=== PATIENT | male | born 1940 | race African-American/Black ===

== ENCOUNTER 2018-03-15 16:02 | Inpatient (IN) | payer MEDICARE, MEDICAID ==
[~2018-03-15] VITALS: Ht 175.3 cm; Wt 74.4 kg
[~2018-03-15 16:02] MED LIST: ABIR500T PO; ALLO100T PO; ENAL5TAB PO; GABA-529 PO; METF-416 PO; PRED5TAB48 PO; TAMS0.4C31 PO
[2018-03-15] MEDS ORDERED: SODIUM CHLORIDE 0.9% 1,000 ML IV ONE (18:27)
[2018-03-15 19:34] LABS: HEMATOCRIT. 32.1 % (42.0-52.0); HEMOGLOBIN. 10.2 g/dL (14.0-18.0); MEAN CORPUSCULAR HEMOGLOBIN 28.9 pg (28.0-32.0); MEAN CORPUSCULAR VOLUME 90.9 fL (80.0-94.0); MEAN PLATELET VOLUME 7.8 fl (7.4-10.4); PLATELET 74 x1000/uL (130-400); RED BLOOD CELL COUNT 3.54 mill/uL (4.7-6.1)
[2018-03-15 19:39] LABS: INR 1.2; PROTHROMBIN TIME 11.7 sec (9.1-11.1)
[2018-03-15 19:41] LABS: CHLORIDE 102 mEq/L (98-107)
[2018-03-15 20:47] LABS: ATYPICAL LYMPHOCYTES 2; NUCLEATED RED BLOOD CELLS 20 /100 WBC; PLATELET ESTIMATE DECREASED
[2018-03-16] MEDS ORDERED: ONDANSETRON HCL 4MG/2ML INJ IV PRN
[2018-03-16] MEDS ORDERED: CLONIDINE 0.1MG TABLET PO PRN
[2018-03-16] MEDS ORDERED: DEXTROSE 50% WATER 50ML SYRINGE IV PRN
[2018-03-16] MEDS ORDERED: IPRATROPIUM/ALBUTEROL 0.5-3(2.5)MG/3ML NEB INH PRN
[2018-03-16] MEDS ORDERED: MAGNESIUM/ALUMINUM HYDROXIDE/SIMETHICONE 30ML UDC PO PRN
[2018-03-16 01:53] LABS: CLARITY URINE TURBID (CLEAR); COLOR URINE YELLOW (YELLOW); KETONES URINE NEGATIVE (NEGATIVE); LEUKOCYTE ESTERASE URINE NEGATIVE (NEGATIVE); NITRITE URINE NEGATIVE (NEGATIVE); OCCULT BLOOD URINE NEGATIVE (NEGATIVE); PH URINE 5.5 (4.5-8.0); PROTEIN URINE 1+ (NEGATIVE); SPECIFIC GRAVITY URINE 1.011 (1.005-1.030); UROBILINOGEN URINE 0.2 E.U./dL (0.2-1.0)
[2018-03-16] MEDS: HYDROCODONE/APAP 7.5/325MG 1 TAB TABLET PO PRN ×2 (03:27→20:58)
[2018-03-16] MEDS ORDERED: MVI, ADULT NO.1 10 ML, FOLIC ACID 1 MG, THIAMINE HCL 100 MG in SODIUM CHLORIDE 0.9% 1,0... IV SCH ×4 (04:00)
[2018-03-16] MEDS: BLOOD SUGAR DIAGNOSTIC STRIP TEST SCH ×4 (07:20→21:07)
[2018-03-16 07:40] VITALS: BP 105/50
[2018-03-16] MEDS: INSULIN LISPRO 100 UNITS/ML SUBCUT SCH ×4 (07:50→21:00)
[2018-03-16 08:00] VITALS: BP 99/61
[2018-03-16] MEDS: TAMSULOSIN HCL 0.4MG SR CAPSULE PO SCH (09:00)
[2018-03-16] MEDS: ALLOPURINOL 100 MG TABLET PO SCH (09:00)
[2018-03-16] MEDS: PREDNISONE 10MG TABLET PO SCH (10:33)
[2018-03-16 12:00] VITALS: BP 96/62
[2018-03-16 16:00] VITALS: BP 98/63
[2018-03-16 20:00] VITALS: BP 93/63
[2018-03-17] VITALS: BP 100/55
[2018-03-17 04:00] VITALS: BP 103/70
[2018-03-17] MEDS: HYDROCODONE/APAP 7.5/325MG 1 TAB TABLET PO PRN (05:26)
[2018-03-17] MEDS: BLOOD SUGAR DIAGNOSTIC STRIP TEST SCH ×4 (06:20→21:57)
[2018-03-17] MEDS: INSULIN LISPRO 100 UNITS/ML SUBCUT SCH ×4 (07:50→21:00)
[2018-03-17 08:00] VITALS: BP 80/48
[2018-03-17] MEDS: TAMSULOSIN HCL 0.4MG SR CAPSULE PO SCH ×2 (09:00→09:42)
[2018-03-17] MEDS: ACETAMINOPHEN 325MG TABLET PO PRN ×2 (09:41→21:00)
[2018-03-17] MEDS: PREDNISONE 10MG TABLET PO SCH (09:42)
[2018-03-17] MEDS: ALLOPURINOL 100 MG TABLET PO SCH (09:42)
[2018-03-17 12:00] VITALS: BP 95/67
[2018-03-17] MEDS ORDERED: HYDROCODONE/ACETAMINOPHEN 10/325MG TABLET PO PRN (12:30)
[2018-03-17] MEDS: HYDROCODONE/ACETAMINOPHEN 10/325MG TABLET PO PRN ×3 (13:44→22:08)
[2018-03-17] MEDS ORDERED: LACTULOSE 20G/30ML UDC PO PRN (13:45)
[2018-03-17] MEDS ORDERED: BISACODYL 10MG SUPP PR PRN (13:45)
[2018-03-17] MEDS ORDERED: MAGNESIUM HYDROXIDE 400MG/5ML 30ML UDC PO PRN (13:45)
[2018-03-17 16:00] VITALS: BP 97/71
[2018-03-17] MEDS: DOCUSATE SODIUM 100MG CAPSULE PO SCH (17:41)
[2018-03-17 20:00] VITALS: BP 99/68
[2018-03-18] VITALS: BP 109/55
[2018-03-18 04:00] VITALS: BP 110/56
[2018-03-18] MEDS: HYDROCODONE/ACETAMINOPHEN 10/325MG TABLET PO PRN ×2 (04:06→09:19)
[2018-03-18] MEDS: BLOOD SUGAR DIAGNOSTIC STRIP TEST SCH (06:45)
[2018-03-18] MEDS: INSULIN LISPRO 100 UNITS/ML SUBCUT SCH (06:45)
[2018-03-18 08:00] VITALS: BP 97/65
[2018-03-18] MEDS: TAMSULOSIN HCL 0.4MG SR CAPSULE PO SCH (09:00)
[2018-03-18] MEDS: ALLOPURINOL 100 MG TABLET PO SCH (09:17)
[2018-03-18] MEDS: MULTIVITAMINS,THER W-MINERALS TABLET PO SCH (09:17)
[2018-03-18] MEDS: DOCUSATE SODIUM 100MG CAPSULE PO SCH ×2 (09:17→16:47)
[2018-03-18] MEDS: PREDNISONE 10MG TABLET PO SCH (09:18)
[2018-03-18 12:00] VITALS: BP 90/56
[2018-03-18 16:00] VITALS: BP 91/60
[2018-03-18] MEDS: MORPHINE SULFATE 10MG/5ML ORAL SOLN UDC PO PRN ×2 (16:00→22:26)
[2018-03-18] MEDS: MEGESTROL ACETATE 400 MG/10 ML UDC PO SCH (16:46)
[2018-03-18] MEDS: LACTULOSE 20G/30ML UDC PO SCH (16:47)
[2018-03-18 20:00] VITALS: BP 96/69
[2018-03-18] MEDS: MORPHINE SULFATE 15MG TABLET SR PO SCH (21:00)
[2018-03-19] VITALS (7 sets, daily range): BP systolic 78–113; BP diastolic 52–73
[2018-03-19] MEDS: ACETAMINOPHEN 325MG TABLET PO PRN ×3 (00:23→15:03)
[2018-03-19] MEDS: MORPHINE SULFATE 10MG/5ML ORAL SOLN UDC PO PRN ×3 (02:07→16:50)
[2018-03-19 06:57] LABS: HEMATOCRIT. 27.9 % (42.0-52.0); HEMOGLOBIN. 8.9 g/dL (14.0-18.0); MEAN CORPUSCULAR HEMOGLOBIN 28.4 pg (28.0-32.0); MEAN CORPUSCULAR VOLUME 89.4 fL (80.0-94.0); MEAN PLATELET VOLUME 8.8 fl (7.4-10.4); RED BLOOD CELL COUNT 3.13 mill/uL (4.7-6.1); RED CELL DISTRIBUTION WIDTH 17.8 % (11.6-14.6)
[2018-03-19 07:05] LABS: PLATELET 50 x1000/uL (130-400)
[2018-03-19 07:44] LABS: CHLORIDE 101 mEq/L (98-107)
[2018-03-19 07:58] LABS: PHOSPHORUS 1.1 mg/dL (2.5-4.9)
[2018-03-19 08:25] LABS: ATYPICAL LYMPHOCYTES 2; NUCLEATED RED BLOOD CELLS 53 /100 WBC
[2018-03-19 08:27] LABS: PLATELET ESTIMATE DECREASED
[2018-03-19] MEDS: ALLOPURINOL 100 MG TABLET PO SCH (09:00)
[2018-03-19] MEDS: DEXT 5%/0.9% NACL 1,000 ML IV SCH ×2 (09:41→19:00)
[2018-03-19] MEDS: DOCUSATE SODIUM 100MG CAPSULE PO SCH ×2 (09:43→16:49)
[2018-03-19] MEDS: MULTIVITAMINS,THER W-MINERALS TABLET PO SCH (09:43)
[2018-03-19] MEDS: TAMSULOSIN HCL 0.4MG SR CAPSULE PO SCH (09:43)
[2018-03-19] MEDS: LACTULOSE 20G/30ML UDC PO SCH ×2 (09:44→16:49)
[2018-03-19] MEDS: MEGESTROL ACETATE 400 MG/10 ML UDC PO SCH ×2 (09:44→16:49)
[2018-03-19] MEDS: PREDNISONE 10MG TABLET PO SCH (09:45)
[2018-03-19] MEDS: MORPHINE SULFATE 15MG TABLET SR PO SCH ×2 (09:45→20:05)
[2018-03-19] MEDS ORDERED: MAGNESIUM 2 G PREMIX 50 ML IV NR (10:30)
[2018-03-19] MEDS ORDERED: POTASSIUM PHOS,M-BASIC-D-BASIC 20 MMOL in DEXT 5% WATER 243.3333 ML IV ONE (11:00)
[2018-03-19] MEDS ORDERED: SODIUM CHLORIDE 0.9% 250 ML IV ONE (16:15)
[2018-03-20] MEDS: MORPHINE SULFATE 10MG/5ML ORAL SOLN UDC PO PRN ×2 (01:15→06:08)
[2018-03-20 04:00] VITALS: BP 120/80
[2018-03-20 07:59] LABS: HEMATOCRIT. 30.3 % (42.0-52.0); HEMOGLOBIN. 9.4 g/dL (14.0-18.0); MEAN CORPUSCULAR HEMOGLOBIN 27.8 pg (28.0-32.0); MEAN CORPUSCULAR VOLUME 89.6 fL (80.0-94.0); MEAN PLATELET VOLUME 7.9 fl (7.4-10.4); RED BLOOD CELL COUNT 3.38 mill/uL (4.7-6.1); RED CELL DISTRIBUTION WIDTH 18.3 % (11.6-14.6)
[2018-03-20 08:00] VITALS: BP 106/72
[2018-03-20 08:19] LABS: PLATELET 39 x1000/uL (130-400)
[2018-03-20 08:59] LABS: PHOSPHORUS 3.3 mg/dL (2.5-4.9)
[2018-03-20] MEDS: ALLOPURINOL 100 MG TABLET PO SCH (09:00)
[2018-03-20] MEDS: LACTULOSE 20G/30ML UDC PO SCH ×2 (09:00→17:00)
[2018-03-20] MEDS: DOCUSATE SODIUM 100MG CAPSULE PO SCH ×2 (09:00→17:00)
[2018-03-20] MEDS: PREDNISONE 10MG TABLET PO SCH (09:34)
[2018-03-20] MEDS: MULTIVITAMINS,THER W-MINERALS TABLET PO SCH (09:34)
[2018-03-20] MEDS: TAMSULOSIN HCL 0.4MG SR CAPSULE PO SCH (09:35)
[2018-03-20] MEDS: MEGESTROL ACETATE 400 MG/10 ML UDC PO SCH ×2 (09:36→17:16)
[2018-03-20] MEDS: MORPHINE SULFATE 15MG TABLET SR PO SCH ×2 (09:36→20:51)
[2018-03-20 12:00] VITALS: BP 80/74
[2018-03-20 13:05] LABS: NUCLEATED RED BLOOD CELLS 85 /100 WBC
[2018-03-20 13:07] LABS: PLATELET ESTIMATE MARKEDLY DECREASED
[2018-03-20] MEDS: DEXT 5%/0.9% NACL 1,000 ML IV SCH (15:00)
[2018-03-20 16:00] VITALS: BP 89/65
[2018-03-20 20:00] VITALS: BP 96/65
[2018-03-21] VITALS: BP 99/64
[2018-03-21] MEDS: DEXT 5%/0.9% NACL 1,000 ML IV SCH ×2 (03:23→13:50)
[2018-03-21] MEDS: MORPHINE SULFATE 10MG/5ML ORAL SOLN UDC PO PRN ×2 (03:38→16:46)
[2018-03-21 04:00] VITALS: BP 92/61
[2018-03-21 07:42] LABS: HEMATOCRIT. 26.9 % (42.0-52.0); HEMOGLOBIN. 8.3 g/dL (14.0-18.0); MEAN CORPUSCULAR HEMOGLOBIN 28.1 pg (28.0-32.0); MEAN CORPUSCULAR VOLUME 90.8 fL (80.0-94.0); RED BLOOD CELL COUNT 2.97 mill/uL (4.7-6.1); RED CELL DISTRIBUTION WIDTH 18.9 % (11.6-14.6)
[2018-03-21 07:54] LABS: PLATELET 43 x1000/uL (130-400)
[2018-03-21 08:00] VITALS: BP 97/60
[2018-03-21] MEDS: PREDNISONE 10MG TABLET PO SCH (08:24)
[2018-03-21] MEDS: LACTULOSE 20G/30ML UDC PO SCH ×3 (08:25→16:52)
[2018-03-21] MEDS: ALLOPURINOL 100 MG TABLET PO SCH (08:25)
[2018-03-21] MEDS: DOCUSATE SODIUM 100MG CAPSULE PO SCH ×3 (08:25→16:53)
[2018-03-21] MEDS: MULTIVITAMINS,THER W-MINERALS TABLET PO SCH (08:25)
[2018-03-21] MEDS: TAMSULOSIN HCL 0.4MG SR CAPSULE PO SCH (08:31)
[2018-03-21] MEDS: MEGESTROL ACETATE 400 MG/10 ML UDC PO SCH ×2 (08:31→16:45)
[2018-03-21] MEDS: MORPHINE SULFATE 15MG TABLET SR PO SCH ×2 (10:42→22:05)
[2018-03-21 12:00] VITALS: BP 95/67
[2018-03-21] MEDS ORDERED: SODIUM POLYSTYRENE SULFONATE 15 G/60 ML BOT PO NR (13:00)
[2018-03-21 13:39] LABS: NUCLEATED RED BLOOD CELLS 32 /100 WBC; PLATELET ESTIMATE MARKEDLY DECREASED
[2018-03-21 16:00] VITALS: BP 100/68
[2018-03-21 20:00] VITALS: BP 102/68
[2018-03-22] VITALS: BP 90/60
[2018-03-22] MEDS: DEXT 5%/0.9% NACL 1,000 ML IV SCH ×3 (00:32→17:01)
[2018-03-22 04:00] VITALS: BP 95/65
[2018-03-22] MEDS: MORPHINE SULFATE 10MG/5ML ORAL SOLN UDC PO PRN (06:38)
[2018-03-22 08:01] VITALS: BP 105/69
[2018-03-22] MEDS: MEGESTROL ACETATE 400 MG/10 ML UDC PO SCH ×2 (09:13→16:40)
[2018-03-22] MEDS: LACTULOSE 20G/30ML UDC PO SCH ×2 (09:13→16:37)
[2018-03-22] MEDS: TAMSULOSIN HCL 0.4MG SR CAPSULE PO SCH (09:14)
[2018-03-22] MEDS: DOCUSATE SODIUM 100MG CAPSULE PO SCH ×2 (09:14→16:37)
[2018-03-22] MEDS: PREDNISONE 10MG TABLET PO SCH (09:14)
[2018-03-22] MEDS: MULTIVITAMINS,THER W-MINERALS TABLET PO SCH (09:14)
[2018-03-22] MEDS: ALLOPURINOL 100 MG TABLET PO SCH (09:14)
[2018-03-22] MEDS: MORPHINE SULFATE 15MG TABLET SR PO SCH ×2 (09:15→22:13)
[2018-03-22 12:00] VITALS: BP 91/51
[2018-03-22 16:00] VITALS: BP 95/52
[2018-03-22 20:00] VITALS: BP 93/56
[2018-03-23] VITALS (7 sets, daily range): BP systolic 88–98; BP diastolic 52–60
[2018-03-23] MEDS: DEXT 5%/0.9% NACL 1,000 ML IV SCH ×3 (06:17→22:54)
[2018-03-23] MEDS: MORPHINE SULFATE 15MG TABLET SR PO SCH ×2 (09:00→20:36)
[2018-03-23] MEDS: TAMSULOSIN HCL 0.4MG SR CAPSULE PO SCH (09:00)
[2018-03-23] MEDS: MULTIVITAMINS,THER W-MINERALS TABLET PO SCH (09:07)
[2018-03-23] MEDS: DOCUSATE SODIUM 100MG CAPSULE PO SCH (09:07)
[2018-03-23] MEDS: ALLOPURINOL 100 MG TABLET PO SCH (09:07)
[2018-03-23] MEDS: PREDNISONE 10MG TABLET PO SCH (09:07)
[2018-03-23] MEDS: MEGESTROL ACETATE 400 MG/10 ML UDC PO SCH ×2 (09:08→16:49)
[2018-03-23] MEDS ORDERED: ALBUMIN HUMAN 25GM/100ML (25%) IV NR (10:00)
[2018-03-23] MEDS ORDERED: MORPHINE SULFATE 10MG/5ML ORAL SOLN UDC PO PRN (14:30)
[2018-03-24] VITALS: BP 107/66
[2018-03-24 04:00] VITALS: BP 99/59
[2018-03-24 08:05] VITALS: BP 81/44
[2018-03-24] MEDS: MEGESTROL ACETATE 400 MG/10 ML UDC PO SCH ×2 (09:19→17:52)
[2018-03-24] MEDS: DEXT 5%/0.9% NACL 1,000 ML IV SCH (09:19)
[2018-03-24] MEDS: PREDNISONE 10MG TABLET PO SCH (09:19)
[2018-03-24] MEDS: MULTIVITAMINS,THER W-MINERALS TABLET PO SCH (09:19)
[2018-03-24] MEDS: TAMSULOSIN HCL 0.4MG SR CAPSULE PO SCH (09:20)
[2018-03-24] MEDS: ALLOPURINOL 100 MG TABLET PO SCH (09:20)
[2018-03-24 12:12] VITALS: BP 85/54
[2018-03-24 16:31] VITALS: BP 89/59
[2018-03-25] VITALS: BP 105/70
[2018-03-25] MEDS: ACETAMINOPHEN 325MG TABLET PO PRN (01:37)
[2018-03-25 04:00] VITALS: BP 90/52
[2018-03-25] MEDS: DEXT 5%/0.9% NACL 1,000 ML IV SCH ×2 (05:00→19:03)
[2018-03-25 08:00] VITALS: BP 79/61
[2018-03-25] MEDS: TAMSULOSIN HCL 0.4MG SR CAPSULE PO SCH ×2 (09:05→09:07)
[2018-03-25] MEDS: MEGESTROL ACETATE 400 MG/10 ML UDC PO SCH ×2 (09:05→17:00)
[2018-03-25] MEDS: MULTIVITAMINS,THER W-MINERALS TABLET PO SCH (09:07)
[2018-03-25] MEDS: PREDNISONE 10MG TABLET PO SCH (09:07)
[2018-03-25] MEDS: ALLOPURINOL 100 MG TABLET PO SCH (09:07)
[2018-03-25 12:00] VITALS: BP 90/59
[2018-03-25] MEDS ORDERED: DIGOXIN 500MCG/2ML AMP IV NR ×2 (12:15→16:15)
[2018-03-25] MEDS: DIGOXIN 500MCG/2ML AMP IV NR (13:15)
[2018-03-25 13:39] LABS: HEMATOCRIT. 24.5 % (42.0-52.0); HEMOGLOBIN. 7.6 g/dL (14.0-18.0); MEAN CORPUSCULAR HEMOGLOBIN 27.5 pg (28.0-32.0); MEAN CORPUSCULAR VOLUME 88.8 fL (80.0-94.0); MEAN PLATELET VOLUME 7.1 fl (7.4-10.4); RED BLOOD CELL COUNT 2.76 mill/uL (4.7-6.1); RED CELL DISTRIBUTION WIDTH 18.8 % (11.6-14.6)
[2018-03-25 13:50] LABS: PHOSPHORUS 2.9 mg/dL (2.5-4.9)
[2018-03-25 14:53] LABS: NUCLEATED RED BLOOD CELLS 53 /100 WBC
[2018-03-25 14:54] LABS: PLATELET ESTIMATE MARKEDLY DECREASED
[2018-03-25 14:56] LABS: PLATELET 17 x1000/uL (130-400)
[2018-03-25 16:00] VITALS: BP 81/54
[2018-03-25] MEDS ORDERED: CALCIUM GLUCONATE 4,000 MG in DEXT 5% WATER 250 ML IV NR (18:30)
[2018-03-25 20:07] VITALS: BP 86/57
[2018-03-25] MEDS ORDERED: MAGNESIUM 1 G PREMIX 100 ML IV NR (21:00)
[2018-03-26 00:05] VITALS: BP 90/62
[2018-03-26] MEDS: DEXT 5%/0.9% NACL 1,000 ML IV SCH ×2 (01:00→11:50)
[2018-03-26 04:00] VITALS: BP 95/66
[2018-03-26 07:44] LABS: HEMATOCRIT. 27.2 % (42.0-52.0); HEMOGLOBIN. 8.4 g/dL (14.0-18.0); MEAN CORPUSCULAR HEMOGLOBIN 27.8 pg (28.0-32.0); MEAN CORPUSCULAR VOLUME 90.3 fL (80.0-94.0); MEAN PLATELET VOLUME 6.9 fl (7.4-10.4); RED BLOOD CELL COUNT 3.01 mill/uL (4.7-6.1)
[2018-03-26] MEDS: MEGESTROL ACETATE 400 MG/10 ML UDC PO SCH ×2 (08:24→17:00)
[2018-03-26] MEDS: MULTIVITAMINS,THER W-MINERALS TABLET PO SCH (08:32)
[2018-03-26] MEDS: ALLOPURINOL 100 MG TABLET PO SCH (08:32)
[2018-03-26] MEDS: PREDNISONE 10MG TABLET PO SCH (08:32)
[2018-03-26] MEDS: TAMSULOSIN HCL 0.4MG SR CAPSULE PO SCH (08:34)
[2018-03-26 10:10] LABS: NUCLEATED RED BLOOD CELLS 65 /100 WBC
[2018-03-26 10:11] LABS: PLATELET ESTIMATE MARKEDLY DECREASED
[2018-03-26 10:14] LABS: PLATELET 14 x1000/uL (130-400)
[2018-03-26 12:00] VITALS: BP 109/64
[2018-03-26 12:37] LABS: BG BASE EXCESS -6.1 mmol/L (-2.0-2.0); BG CARBOXYHEMOGLOBIN 0.6 % (0.5-1.5); BG DEOXYHEMOGLOBIN 3.8 % (0.0-5.0); BG FRACTION INSPIRED OXYGEN 21; BG HCO3 ACT 15.8 mmol/L (22.0-26.0); BG METHEMOGLOBIN 0.1 % (0.0-1.5); BG OXYGEN SATURATION 96.2 % (92.0-98.5); BG OXYHEMOGLOBIN 95.5 % (94.0-97.0); BG PH 7.493 (7.350-7.450); BG PO2 82.2 mmHg (75.0-100.0); BG SAMPLE SITE RIGHT BRACHIAL; BG TOTAL HEMOGLOBIN 9.7 g/dL (12.0-18.0); BG VENT MODE ROOM AIR
[2018-03-26] MEDS ORDERED: KCL 20MEQ/100ML PREMIX 100 ML IV SCH (13:00)
[2018-03-26] MEDS: DIGOXIN 500MCG/2ML AMP IV NR (14:51)
[2018-03-26] MEDS: HYDROCODONE/ACETAMINOPHEN 10/325MG TABLET PO PRN ×2 (15:12→23:13)
[2018-03-26] MEDS: ATENOLOL 50 MG TABLET PO SCH (15:27)
[2018-03-26 16:00] VITALS: BP 77/51
[2018-03-26] MEDS: MORPHINE SULFATE 15MG TABLET SR PO SCH (20:22)
[2018-03-26] MEDS ORDERED: ATENOLOL 50 MG TABLET PO SCH (21:00)
[2018-03-27 00:15] VITALS: BP 101/58
[2018-03-27 04:00] VITALS: BP 94/64
[2018-03-27] MEDS: HYDROCODONE/ACETAMINOPHEN 10/325MG TABLET PO PRN (06:39)
[2018-03-27] MEDS: DEXT 5%/0.9% NACL 1,000 ML IV SCH (07:14)
[2018-03-27 08:00] VITALS: BP 107/62
[2018-03-27] MEDS: ALLOPURINOL 100 MG TABLET PO SCH (09:11)
[2018-03-27] MEDS: PREDNISONE 10MG TABLET PO SCH (09:11)
[2018-03-27] MEDS: MEGESTROL ACETATE 400 MG/10 ML UDC PO SCH ×2 (09:11→18:01)
[2018-03-27] MEDS: MULTIVITAMINS,THER W-MINERALS TABLET PO SCH (09:11)
[2018-03-27] MEDS: TAMSULOSIN HCL 0.4MG SR CAPSULE PO SCH (09:12)
[2018-03-27] MEDS: ATENOLOL 50 MG TABLET PO SCH ×2 (09:22→21:00)
[2018-03-27 10:20] LABS: HEMATOCRIT. 28.8 % (42.0-52.0); HEMOGLOBIN. 8.6 g/dL (14.0-18.0); MEAN PLATELET VOLUME 4.6 fl (7.4-10.4); RED BLOOD CELL COUNT 3.17 mill/uL (4.7-6.1); RED CELL DISTRIBUTION WIDTH 19.2 % (11.6-14.6)
[2018-03-27 10:27] LABS: PLATELET 6 x1000/uL (130-400)
[2018-03-27 10:31] LABS: PHOSPHORUS 3.2 mg/dL (2.5-4.9)
[2018-03-27 11:42] LABS: ATYPICAL LYMPHOCYTES 1; NUCLEATED RED BLOOD CELLS 161 /100 WBC; PLATELET ESTIMATE MARKEDLY DECREASED
[2018-03-27 12:00] VITALS: BP 93/63
[2018-03-27] MEDS: MORPHINE SULFATE 15MG TABLET SR PO SCH ×2 (14:07→21:00)
[2018-03-27 16:00] VITALS: BP 92/57
[2018-03-27] MEDS ORDERED: FUROSEMIDE 40MG/4ML VIAL IVP NR (17:00)
[2018-03-27 20:00] VITALS: BP 92/54
[2018-03-28] VITALS: BP 89/53
[2018-03-28 04:00] VITALS: BP 95/58
[2018-03-28 08:00] VITALS: BP 85/46
[2018-03-28] MEDS: ATENOLOL 50 MG TABLET PO SCH (09:00)
[2018-03-28 12:00] VITALS: BP 81/51
[2018-03-28] MEDS: MEGESTROL ACETATE 400 MG/10 ML UDC PO SCH (12:00)
[2018-03-28] MEDS: TAMSULOSIN HCL 0.4MG SR CAPSULE PO SCH (12:01)
[2018-03-28] MEDS: MORPHINE SULFATE 15MG TABLET SR PO SCH (12:02)
[2018-03-28] MEDS: MULTIVITAMINS,THER W-MINERALS TABLET PO SCH (12:03)
[2018-03-28] MEDS: ALLOPURINOL 100 MG TABLET PO SCH (12:03)
[2018-03-28] MEDS: PREDNISONE 10MG TABLET PO SCH (12:03)
[2018-03-28] MEDS ORDERED: IOHEXOL-350 100 ML BOTTLE ONE (15:20)
[2018-03-28 16:00] VITALS: BP 88/41
[2018-03-28 18:20] VITALS: BP 88/41
== END 2018-03-28 19:25 | DRG 469 ==
LOC: ER 16:02 → 6EST 20:12 → EDBEDREQTM 20:20 → EDBEDREQ 20:20 → ENRESERV 03-16 00:37 → 6EST 03-16 07:10 → 7WST 03-20 23:25
PROVIDERS: ADMIT Internal Medicine; ATTEND Internal Medicine
DX: N17.0 Acute kidney failure with tubular necrosis (principal); E43 Unspecified severe protein-calorie malnutrition; L89.153 Pressure ulcer of sacral region, stage 3; D61.818 Other pancytopenia; C78.7 Secondary malignant neoplasm of liver and intrahepatic bile duct; E11.22 Type 2 diabetes mellitus with diabetic chronic kidney disease; E87.2 Acidosis; E83.39 Other disorders of phosphorus metabolism; E83.42 Hypomagnesemia; Z51.5 Encounter for palliative care; R62.7 Adult failure to thrive; I47.1 Supraventricular tachycardia; I48.0 Paroxysmal atrial fibrillation; C61 Malignant neoplasm of prostate; D64.9 Anemia, unspecified; E11.9 Type 2 diabetes mellitus without complications; E86.0 Dehydration; E86.1 Hypovolemia; E87.5 Hyperkalemia; I12.9 Hypertensive chronic kidney disease with stage 1 through stage 4 chronic kidney disease, or unspecified chronic kidney disease; M10.9 Gout, unspecified; M19.90 Unspecified osteoarthritis, unspecified site; N18.9 Chronic kidney disease, unspecified; N21.0 Calculus in bladder; N28.1 Cyst of kidney, acquired; R18.8 Other ascites; E83.51 Hypocalcemia; I95.9 Hypotension, unspecified; Z92.21 Personal history of antineoplastic chemotherapy; Z90.79 Acquired absence of other genital organ(s); Z79.899 Other long term (current) drug therapy
CPT/HCPCS: 36415; 36600; 71045; 76705; 76770; 80048; 82330; 82375; 82805; 82962; 83036; 83735; 84100; 84134; 84443; 84484; 86850; 86900; 93005; 93306; 93970; 94640; 96360; 96361; 97116; 97162; 97166; 97530; 99285; A6261; C1893; J0610; J1160; J1815; J1940; J3411; J3475; J3480; J3490; J7030; J7042; J7050; J7060; J7070; J7512; P9047; Q9967; A4315